=== PATIENT | female | born 1995 | race Hispanic/Latino ===

== ENCOUNTER 2021-12-26 00:14 | Emergency (ER) | payer OTHER, MEDICAID ==
[~2021-12-26] VITALS: Ht 157.5 cm; Wt 90.3 kg
[2021-12-26] MEDS ORDERED: HYDROCODONE/ACETAMINOPHEN 10/325 MG TAB PO ONE (01:30)
[2021-12-26] MEDS ORDERED: ACET-2079 PO (01:32)
[2021-12-26 01:39] VITALS: BP 112/75
[2021-12-27] MEDS ORDERED: ACET-2123 PO (08:58)
[2021-12-27] MEDS ORDERED: IBUP-2070 PO (08:58)
== END 2021-12-26 01:42 | disposition home or self-care (01) ==
LOC: EDH 00:14
DX: O03.4 Incomplete spontaneous abortion without complication (principal); Z3A.11 11 weeks gestation of pregnancy